=== PATIENT | female | born 1965 | race Caucasian/White ===

== ENCOUNTER → 2016-10-06 | Outpatient (CLI) | payer BC ==
[~2016-10-06] MED LIST: ACET1TAB12 PO; CEPH-583 PO; TOPI100T43 PO
== END ==
LOC: NEU 09:04
PROVIDERS: ATTEND Psychiatry & Neurology Neurology
DX: R40.4 Transient alteration of awareness (principal); R94.01 Abnormal electroencephalogram [EEG]
CPT/HCPCS: 95816